=== PATIENT | male | born 1950 | race Caucasian/White ===

== ENCOUNTER 2021-06-17 02:28 | Day surgery (SDC) | payer OTHER, MEDICAID, SELFPAY ==
[2021-05-31 13:10] VITALS: BMI 37.2
[2021-06-17 09:29] VITALS: BP 148/80; PULSE 65; RESP 20; TEMP 36.2; O2SAT 97
[2021-06-17] MEDS: LACTATED RINGERS 1,000 ML 150 ML IV CONT (09:51)
--- NOTE | 2021-06-17 10:22 | WPDANESEPPF ---
Anes - Initial Pre Proc Eval Procedure: Operation Date: 06/17/21 10:00 Proposed Procedures p Colonoscopy - Ernesto Keen MD Date/Time: 06/17/21 10:22 Surgeon: Ernesto Keen MD Pre Op Diagnosis: positive cologuard Patient Data Age: 70 Gender: M Height: 1.73 m Weight: 111.3 kg Last Vital Signs Temp 97.1 F L 06/17/21 09:29 Pulse 65 06/17/21 09:29 Resp 20 06/17/21 09:29 BP 148/80 H 06/17/21 09:29 Pulse Ox 97 06/17/21 09:29 Allergies Allergy/AdvReac Type Severity Reaction Status Date / Time No Known Allergies Allergy Verified 06/17/21 09:26 Home Medications Medication Instructions Recorded Confirmed Type cholecalciferol (vitamin D3) 50 2,000 unit PO DAILY 12/07/19 05/31/21 History mcg (2,000 unit) tablet multivitamin 1 tablet PO DAILY 12/07/19 05/31/21 History triamcinolone acetonide 0.1 % 1 applic TOPICAL BID 12/07/19 05/31/21 History topical cream apixaban 2.5 mg tablet 2.5 mg PO BID 07/11/20 05/31/21 History amlodipine 5 mg tablet 5 mg PO DAILY #90 tablet 07/18/20 05/31/21 Rx atorvastatin 40 mg tablet 40 mg PO DAILY #90 tablet 01/11/21 05/31/21 Rx fluticasone propionate 50 1 spray INTRANASAL Q12H #18.2 ml 01/14/21 05/31/21 Rx mcg/actuation nasal spray,suspension omeprazole 20 mg capsule,delayed 20 mg PO DAILY #90 cap 01/29/21 05/31/21 Rx release sertraline 25 mg tablet 25 mg PO BID #180 tablet 01/29/21 05/31/21 Rx levothyroxine 75 mcg tablet 75 mcg PO DAILY #90 tablet 02/01/21 05/31/21 Rx tizanidine 4 mg tablet 4 mg PO TID PRN #60 tablet 02/01/21 05/31/21 Rx lisinopril 40 mg tablet 40 mg PO DAILY #90 tablet 03/22/21 05/31/21 Rx alprazolam 1 mg tablet 1 mg PO BID #60 tablet 05/21/21 05/31/21 Rx montelukast 10 mg tablet 10 mg PO DAILY #90 tablet 05/21/21 05/31/21 Rx hydrocodone 10 mg-acetaminophen 1 tablet PO TID PRN #90 tablet 05/22/21 05/31/21 Rx 325 mg tablet carvedilol 3.125 mg PO BID 05/31/21 05/31/21 History Patient hx anesthesia problems: none Family hx anesthesia problems: none PMFSH Past Medical History Medical History Acquired hypothyroidism Benign essential hypertension Benzodiazepine dependence, continuous Cardiomyopathy CKD (chronic kidney disease) stage 3, GFR 30-59 ml/min Constipation by delayed colonic transit Coronary atherosclerosis due to calcified coronary lesion BEN (generalized anxiety disorder) Gastro-esophageal reflux disease without esophagitis History of pelvic fracture Ischemic cardiomyopathy skilled nursing current use of anticoagulant therapy Mitral valve regurgitation Mixed hyperlipidemia Moderate episode of recurrent major depressive disorder Opioid dependence in controlled environment ELIA (obstructive sleep apnea) PAF (paroxysmal atrial fibrillation) Pain syndrome, chronic Polypharmacy Rosacea Tobacco dependence due to cigarettes Tobacco use disorder Unilateral inguinal hernia without obstruction or gangrene Ventral hernia without obstruction or gangrene Vitamin D deficiency, unspecified Surgical History Surgical History History of abdominal surgery History of foot surgery History of surgery on wrist Family History Family History Mother Ovarian cancer Thyroid disorder Grandparent Skin cancer Sibling Breast cancer Father Mesothelioma Social History Social History (Updated 05/21/21 @ 11:11 by Huma Mcclure) Social History: Smoking packs per day: 0.5 Smoking cigarettes per day: 10.0 Years smoked: 40 Smoking pack-years: 20.00 Smoking status: Current every day smoker Tobacco type: cigarettes Second hand tobacco smoke exposure: Yes Alcohol intake: current Drinks per week: 3 Alcohol use details: socially Substance use: current Substance use type: marijuana Other substance usage details: most days before bed Living
--- NOTE | 2021-06-17 10:26 | PM.HPGS ---
History of Present Illness History of Present Illness Consent: Risks, benefits, and alternatives have been discussed and questions answered. Patient agrees to proceed with procedure. Chief complaint: positive cologuard Narrative: Roby De Souza is a 70 year old male Here for colon cancer screening. 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 Mitral valve regurgitation Mixed hyperlipidemia Moderate episode of recurrent major depressive disorder Opioid dependence in controlled environment ELIA (obstructive sleep apnea) PAF (paroxysmal atrial fibrillation) Pain syndrome, chronic Polypharmacy Rosacea Tobacco dependence due to cigarettes Tobacco use disorder Unilateral inguinal hernia without obstruction or gangrene Ventral hernia without obstruction or gangrene Vitamin D deficiency, unspecified Surgical History Surgical History History of abdominal surgery History of foot surgery History of surgery on wrist Family History Family History Mother Ovarian cancer Thyroid disorder Grandparent Skin cancer Sibling Breast cancer Father Mesothelioma Social History Social History Social History: Smoking packs per day: 0.5 Smoking cigarettes per day: 10.0 Years smoked: 40 Smoking pack-years: 20.00 Smoking status: Current every day smoker Tobacco type: cigarettes Second hand tobacco smoke exposure: Yes Alcohol intake: current Drinks per week: 3 Alcohol use details: socially Substance use: current Substance use type: marijuana Other substance usage details: most days before bed Living arrangements: alone Gender identity (if verbalized by the patient): Male Spiritual care concerns: No Meds Home Medications and Allergies Home Medications Medication Instructions Recorded Confirmed Type cholecalciferol (vitamin D3) 50 2,000 unit PO DAILY 12/07/19 05/31/21 History mcg (2,000 unit) tablet multivitamin 1 tablet PO DAILY 12/07/19 05/31/21 History triamcinolone acetonide 0.1 % 1 applic TOPICAL BID 12/07/19 05/31/21 History topical cream apixaban 2.5 mg tablet 2.5 mg PO BID 07/11/20 05/31/21 History amlodipine 5 mg tablet 5 mg PO DAILY #90 tablet 07/18/20 05/31/21 Rx atorvastatin 40 mg tablet 40 mg PO DAILY #90 tablet 01/11/21 05/31/21 Rx fluticasone propionate 50 1 spray INTRANASAL Q12H #18.2 ml 01/14/21 05/31/21 Rx mcg/actuation nasal spray,suspension omeprazole 20 mg capsule,delayed 20 mg PO DAILY #90 cap 01/29/21 05/31/21 Rx release sertraline 25 mg tablet 25 mg PO BID #180 tablet 01/29/21 05/31/21 Rx levothyroxine 75 mcg tablet 75 mcg PO DAILY #90 tablet 02/01/21 05/31/21 Rx tizanidine 4 mg tablet 4 mg PO TID PRN #60 tablet 02/01/21 05/31/21 Rx lisinopril 40 mg tablet 40 mg PO DAILY #90 tablet 03/22/21 05/31/21 Rx alprazolam 1 mg tablet 1 mg PO BID #60 tablet 05/21/21 05/31/21 Rx montelukast 10 mg tablet 10 mg PO DAILY #90 tablet 05/21/21 05/31/21 Rx hydrocodone 10 mg-acetaminophen 1 tablet PO TID PRN #90 tablet 05/22/21 05/31/21 Rx 325 mg tablet carvedilol 3.125 mg PO BID 05/31/21 05/31/21 History Allergies Allergy/AdvReac Type Severity Reaction Statu
[2021-06-17 10:49] VITALS: BP 106/61; PULSE 68; RESP 17; O2SAT 97
[2021-06-17 10:59] VITALS: BP 119/71; PULSE 64; RESP 13; O2SAT 96
[2021-06-17 11:09] VITALS: BP 137/85; PULSE 68; RESP 21; O2SAT 100
== END 2021-06-17 11:27 | disposition home or self-care (01) ==
PROVIDERS: PCP Family Medicine; Visit Provider Internal Medicine Gastroenterology
PROC: 0DJD8ZZ Inspection of Lower Intestinal Tract, Via Natural or Artificial Opening Endoscopic (ICD-10-PCS; CPT 45378; principal; 2021-06-17 10:00)
DX: R19.5 Other fecal abnormalities (principal); D12.2 Benign neoplasm of ascending colon; K57.30 Diverticulosis of large intestine without perforation or abscess without bleeding; E03.9 Hypothyroidism, unspecified; I25.10 Atherosclerotic heart disease of native coronary artery without angina pectoris; I42.9 Cardiomyopathy, unspecified; I34.0 Nonrheumatic mitral (valve) insufficiency; I25.5 Ischemic cardiomyopathy; I48.0 Paroxysmal atrial fibrillation; I12.9 Hypertensive chronic kidney disease with stage 1 through stage 4 chronic kidney disease, or unspecified chronic kidney disease; N18.30 Chronic kidney disease, stage 3 unspecified; K59.01 Slow transit constipation; K21.9 Gastro-esophageal reflux disease without esophagitis; K43.9 Ventral hernia without obstruction or gangrene; K40.90 Unilateral inguinal hernia, without obstruction or gangrene, not specified as recurrent; E78.2 Mixed hyperlipidemia; E55.9 Vitamin D deficiency, unspecified; G47.33 Obstructive sleep apnea (adult) (pediatric); F32.9 Major depressive disorder, single episode, unspecified; F11.20 Opioid dependence, uncomplicated; F13.20 Sedative, hypnotic or anxiolytic dependence, uncomplicated; F17.210 Nicotine dependence, cigarettes, uncomplicated; F41.1 Generalized anxiety disorder; F12.90 Cannabis use, unspecified, uncomplicated; Z79.01 Long term (current) use of anticoagulants
CPT/HCPCS: 45385; 45381; 88305; J2704; J7120